=== PATIENT | female | born 1935 | race African-American/Black ===

== ENCOUNTER 2017-09-29 18:09 | Emergency (ER) | payer MEDICARE ==
[~2017-09-29] VITALS: Ht 160 cm; Wt 71.0 kg
[~2017-09-29 18:09] MED LIST: AMLO10TA80 PO; CARV12.545 PO; FOLI-43 PO; OMEP20CA10 PO; SIMV20TA6 PO; TRIA1CAP6 PO; proair hfa
[2017-09-29] MEDS ORDERED: ACETAMINOPHEN 500MG TABLET PO ONE (20:00)
[2017-09-29] MEDS ORDERED: IBUPROFEN 400MG TABLET PO ONE (20:00)
[2017-09-29 20:23] LABS: CLARITY URINE CLOUDY (CLEAR); COLOR URINE YELLOW (YELLOW); KETONES URINE NEGATIVE (NEGATIVE); LEUKOCYTE ESTERASE URINE 2+ (NEGATIVE); NITRITE URINE NEGATIVE (NEGATIVE); OCCULT BLOOD URINE 1+ (NEGATIVE); PROTEIN URINE NEGATIVE (NEGATIVE); UROBILINOGEN URINE 0.2 E.U./dL (0.2-1.0)
[2017-09-29 21:22] VITALS: BP 128/70
== END 2017-09-29 23:05 | disposition home or self-care (01) ==
LOC: ER 18:39
DX: S39.012A Strain of muscle, fascia and tendon of lower back, initial encounter (principal); N39.0 Urinary tract infection, site not specified; I11.0 Hypertensive heart disease with heart failure; I50.9 Heart failure, unspecified; J44.9 Chronic obstructive pulmonary disease, unspecified; X58.XXXA Exposure to other specified factors, initial encounter; Y93.89 Activity, other specified; Y92.89 Other specified places as the place of occurrence of the external cause; Y99.8 Other external cause status
CPT/HCPCS: 74176; 81001; 99285

== ENCOUNTER 2018-07-03 10:57 | Emergency (ER) | payer MEDICARE ==
[~2018-07-03] VITALS: Ht 160 cm; Wt 68.0 kg
[2018-07-03] MEDS ORDERED: TRAMADOL 50MG TABLET PO ONE (11:45)
[2018-07-03] MEDS ORDERED: KETOROLAC 60MG/2ML VIAL IM ONE (13:00)
[2018-07-03 15:00] VITALS: BP 143/74
[2018-07-16] MEDS ORDERED: POTA15TA11 PO (21:47)
[2018-07-16] MEDS ORDERED: LISI-604 PO (21:47)
== END 2018-07-03 15:24 | disposition home or self-care (01) ==
LOC: ER 10:57
DX: M54.2 Cervicalgia (principal); J44.9 Chronic obstructive pulmonary disease, unspecified; I11.0 Hypertensive heart disease with heart failure; I50.9 Heart failure, unspecified
CPT/HCPCS: 73030; 93005; 96372; 99284; J1885

== ENCOUNTER 2018-08-14 12:43 | Emergency (ER) | payer MEDICARE ==
[~2018-08-14] VITALS: Ht 157.5 cm; Wt 65.0 kg
[~2018-08-14 12:43] MED LIST changes: +LISI-604 PO; +POTA15TA11 PO; -TRIA1CAP6 PO; -proair hfa
[2018-08-14 13:18] VITALS: BP 144/69
== END 2018-08-14 21:00 | disposition left against medical advice (07) ==
LOC: ER 12:43
DX: Z53.21 Procedure and treatment not carried out due to patient leaving prior to being seen by health care provider (principal)

== ENCOUNTER 2018-08-15 12:14 | Emergency (ER) | payer MEDICARE ==
[~2018-08-15] VITALS: Ht 160 cm; Wt 70.0 kg
[2018-08-15 14:47] LABS: BASOPHILS % 0.9 % (0.0-2.0); EOSINOPHILS % 1.6 % (0.0-5.0); HEMATOCRIT. 34.4 % (36.0-48.0); HEMOGLOBIN. 11.3 g/dL (12.0-16.0); MEAN CORPUSCULAR VOLUME 88.5 fL (81.0-99.0); MEAN PLATELET VOLUME 7.5 fl (7.4-10.4); MONOCYTES % 9.2 % (2.0-8.0); NEUTROPHILS % 55.3 % (40.0-76.0); PLATELET 361 x1000/uL (130-400); RED BLOOD CELL COUNT 3.89 mill/uL (4.2-5.4); RED CELL DISTRIBUTION WIDTH 17.4 % (11.6-14.6)
[2018-08-15 14:55] LABS: CHLORIDE 106 mEq/L (98-107)
[2018-08-15 14:58] LABS: INR 1.1; PROTHROMBIN TIME 10.8 sec (9.1-11.1)
[2018-08-15] MEDS ORDERED: ACETAMINOPHEN 325MG TABLET PO ONE (15:15)
[2018-08-15] MEDS ORDERED: MORPHINE SULFATE 2 MG/ML CPJ (NOT FOR IM USE) IV ONE (16:00)
[2018-08-15 19:30] VITALS: BP 148/62
== END 2018-08-15 19:47 | disposition home or self-care (01) ==
LOC: ER 12:14
DX: M24.312 Pathological dislocation of left shoulder, not elsewhere classified (principal); M47.892 Other spondylosis, cervical region; M54.10 Radiculopathy, site unspecified; R03.0 Elevated blood-pressure reading, without diagnosis of hypertension
CPT/HCPCS: 36415; 71045; 72125; 73030; 80053; 83690; 83880; 84484; 85025; 85610; 85730; 93005; 96374; 99285; J2270

== ENCOUNTER 2018-12-18 10:01 | Inpatient (IN) | payer MEDICARE ==
[~2018-12-18] VITALS: Ht 160 cm; Wt 60.5 kg
[2018-12-18] MEDS ORDERED: FUROSEMIDE 40MG/4ML VIAL IVP ONE (11:00)
[2018-12-18 11:08] LABS: HEMATOCRIT. 26.4 % (36.0-48.0); HEMOGLOBIN. 7.8 g/dL (12.0-16.0); MEAN CORPUSCULAR HEMOGLOBIN 20.4 pg (28.0-32.0); MEAN CORPUSCULAR VOLUME 69.2 fL (81.0-99.0); MEAN PLATELET VOLUME 8.6 fl (7.4-10.4); PLATELET 295 x1000/uL (130-400); RED BLOOD CELL COUNT 3.81 mill/uL (4.2-5.4); RED CELL DISTRIBUTION WIDTH 22.1 % (11.6-14.6)
[2018-12-18 11:14] LABS: CHLORIDE 110 mEq/L (98-107)
[2018-12-18 11:40] LABS: PLATELET ESTIMATE NORMAL
[2018-12-18] MEDS ORDERED: CARVEDILOL 6.25 MG TABLET PO NR (18:00)
[2018-12-18] MEDS ORDERED: LISINOPRIL 10MG TABLET PO NR (18:00)
[2018-12-18 22:05] VITALS: BP 142/63
[2018-12-19] VITALS (7 sets, daily range): BP systolic 129–142; BP diastolic 51–70
[2018-12-19] MEDS ORDERED: ACETAMINOPHEN 325MG TABLET PO PRN
[2018-12-19] MEDS ORDERED: CLONIDINE 0.1MG TABLET PO PRN
[2018-12-19] MEDS ORDERED: HYDROCODONE/ACETAMINOPHEN 5/325MG TABLET PO PRN
[2018-12-19] MEDS ORDERED: FERR325T6 MT (03:25)
[2018-12-19] MEDS ORDERED: POTA10CA42 MT (03:26)
[2018-12-19] MEDS ORDERED: IOHEXOL-350 100 ML BOTTLE ONE (04:34)
[2018-12-19 05:46] LABS: CLARITY URINE CLEAR (CLEAR); COLOR URINE YELLOW (YELLOW); KETONES URINE NEGATIVE (NEGATIVE); LEUKOCYTE ESTERASE URINE 1+ (NEGATIVE); NITRITE URINE NEGATIVE (NEGATIVE); OCCULT BLOOD URINE NEGATIVE (NEGATIVE); PH URINE 5.5 (4.5-8.0); PROTEIN URINE NEGATIVE (NEGATIVE); SPECIFIC GRAVITY URINE 1.049 (1.005-1.030); UROBILINOGEN URINE 0.2 E.U./dL (0.2-1.0)
[2018-12-19] MEDS ORDERED: OMEPRAZOLE 20MG CAPSULE EXTENDED RELEASE PO SCH (06:45)
[2018-12-19 08:07] LABS: CHLORIDE 106 mEq/L (98-107)
[2018-12-19 08:10] LABS: HEMATOCRIT. 25.1 % (36.0-48.0); HEMOGLOBIN. 7.4 g/dL (12.0-16.0); MEAN CORPUSCULAR HEMOGLOBIN 20.4 pg (28.0-32.0); MEAN CORPUSCULAR VOLUME 68.9 fL (81.0-99.0); MEAN PLATELET VOLUME 7.7 fl (7.4-10.4); PLATELET 276 x1000/uL (130-400); RED BLOOD CELL COUNT 3.64 mill/uL (4.2-5.4); RED CELL DISTRIBUTION WIDTH 21.8 % (11.6-14.6)
[2018-12-19 08:14] LABS: LDL CHOLESTEROL 58 mg/dL (5-100)
[2018-12-19 08:15] LABS: HDL CHOLESTEROL 46 mg/dL (40-59)
[2018-12-19 08:50] LABS: NUCLEATED RED BLOOD CELLS 1 /100 WBC
[2018-12-19 08:51] LABS: PLATELET ESTIMATE NORMAL
[2018-12-19] MEDS ORDERED: POTASSIUM CHLORIDE 10MEQ TABLET SR PO SCH (09:00)
[2018-12-19] MEDS: LISINOPRIL 10MG TABLET PO SCH ×2 (09:15→21:19)
[2018-12-19] MEDS: CARVEDILOL 6.25 MG TABLET PO SCH ×2 (09:15→21:19)
[2018-12-19] MEDS: FUROSEMIDE 40MG/4ML VIAL IVP SCH ×2 (09:16→18:01)
[2018-12-19] MEDS: POTASSIUM CHLORIDE 20MEQ TABLET SR PO SCH (11:00)
[2018-12-19] MEDS ORDERED: SORBITOL 70% SOLN 30ML PO SCH (15:15)
[2018-12-19] MEDS: IRON SUCROSE COMPLEX 100 MG/5 ML ML IV SCH (18:01)
[2018-12-19] MEDS: PANTOPRAZOLE SODIUM 40 MG/VIAL IV SCH ×2 (18:01→22:20)
[2018-12-19 18:12] LABS: HEMATOCRIT 23.7 % (36.0-48.0); HEMOGLOBIN 7.2 g/dL (12.0-16.0)
[2018-12-19] MEDS ORDERED: ATORVASTATIN CALCIUM 10MG TABLET PO SCH (21:00)
[2018-12-19] MEDS ORDERED: MEDICATION NOT ON FORMULARY EA (Simvastatin 20 MG) PO SCH (21:00)
[2018-12-20] VITALS (12 sets, daily range): BP systolic 123–175; BP diastolic 50–79
[2018-12-20 07:39] LABS: HEMATOCRIT. 24.5 % (36.0-48.0); HEMOGLOBIN. 7.2 g/dL (12.0-16.0); MEAN CORPUSCULAR HEMOGLOBIN 20.1 pg (28.0-32.0); MEAN CORPUSCULAR VOLUME 67.9 fL (81.0-99.0); MEAN PLATELET VOLUME 8.6 fl (7.4-10.4); PLATELET 266 x1000/uL (130-400); RED BLOOD CELL COUNT 3.61 mill/uL (4.2-5.4); RED CELL DISTRIBUTION WIDTH 22.2 % (11.6-14.6)
[2018-12-20] MEDS: PANTOPRAZOLE SODIUM 40 MG/VIAL IV SCH (08:25)
[2018-12-20] MEDS: FUROSEMIDE 40MG/4ML VIAL IVP SCH (08:25)
[2018-12-20 09:44] LABS: INR 1.1
[2018-12-20] MEDS ORDERED: SODIUM BICARBONATE 4% (2.4MEQ) 5ML VIAL IV ONE (09:54)
[2018-12-20] MEDS ORDERED: LIDOCAINE HCL 1% 20ML VIAL (Pyxis) INJ ONE (09:54)
[2018-12-20] MEDS ORDERED: CEFAZOLIN 1000MG PREMIX 50 ML IV SCH (11:00)
[2018-12-20] MEDS: LISINOPRIL 10MG TABLET PO SCH (11:47)
[2018-12-20] MEDS: POTASSIUM CHLORIDE 20MEQ TABLET SR PO SCH (11:47)
[2018-12-20] MEDS: CARVEDILOL 6.25 MG TABLET PO SCH (11:47)
[2018-12-20] MEDS ORDERED: POTASSIUM CHLORIDE 20MEQ TABLET SR PO SCH (13:30)
[2018-12-20] MEDS ORDERED: FUROSEMIDE 40MG/4ML VIAL IVP SCH (13:30)
[2018-12-20] MEDS: IRON SUCROSE COMPLEX 100 MG/5 ML ML IV SCH (18:02)
[2018-12-21] MEDS ORDERED: FUROSEMIDE 40MG/4ML VIAL IVP SCH (09:00)
[2018-12-21 13:50] LABS: NUCLEATED RED BLOOD CELLS 2 /100 WBC
[2018-12-21 13:51] LABS: PLATELET ESTIMATE NORMAL
== END 2018-12-20 18:55 | disposition home or self-care (01) | DRG 253 ==
LOC: ER 10:01 → 5WST 12:22 → ENRESERV 20:59 → 5WST 12-19 01:50
PROVIDERS: ADMIT Internal Medicine; ATTEND Internal Medicine
PROC: 06H03DZ Insertion of Intraluminal Device into Inferior Vena Cava, Percutaneous Approach (ICD-10-PCS; principal; 2018-12-20)
PROC: 30233N1 Transfusion of Nonautologous Red Blood Cells into Peripheral Vein, Percutaneous Approach (ICD-10-PCS; 2018-12-20)
DX: I82.412 Acute embolism and thrombosis of left femoral vein (principal); I31.3 Pericardial effusion (noninflammatory); I50.32 Chronic diastolic (congestive) heart failure; J44.1 Chronic obstructive pulmonary disease with (acute) exacerbation; N39.0 Urinary tract infection, site not specified; D50.9 Iron deficiency anemia, unspecified; E78.5 Hyperlipidemia, unspecified; E87.6 Hypokalemia; I11.0 Hypertensive heart disease with heart failure; I27.20 Pulmonary hypertension, unspecified; I08.2 Rheumatic disorders of both aortic and tricuspid valves; M19.90 Unspecified osteoarthritis, unspecified site; K21.9 Gastro-esophageal reflux disease without esophagitis; K59.00 Constipation, unspecified; N28.9 Disorder of kidney and ureter, unspecified; Z86.711 Personal history of pulmonary embolism; Z87.11 Personal history of peptic ulcer disease; Z87.891 Personal history of nicotine dependence; Z95.828 Presence of other vascular implants and grafts; Z99.81 Dependence on supplemental oxygen; Z79.899 Other long term (current) drug therapy; Z82.49 Family history of ischemic heart disease and other diseases of the circulatory system
CPT/HCPCS: 36415; 37191; 71045; 71275; 80048; 80061; 83540; 83550; 83735; 83880; 84443; 84484; 85014; 85018; 85379; 86850; 86900; 86920; 93005; 93306; 93970; 96374; 99285; C1769; C1880; C9113; J0690; J1644; J1940; J3490; J7050; P9016; Q9967